=== PATIENT | male | born 1965 | race African-American/Black ===

== ENCOUNTER 2017-08-31 11:38 | Emergency (ER) | payer MEDICAID, SELFPAY ==
[2017-08-31 11:41] VITALS: BP 139/72; PULSE 86; RESP 18; TEMP 36.6; O2SAT 100; BMI 28.7
--- NOTE | 2017-08-31 11:56 | HMH.EDGENADL ---
ED Disposition Clinical Impression: Noncompliance Disposition: Home, Self-Care Condition on Discharge: Good Additional Instructions: I informed the the patient that his chronic renal failure is getting worse and he needs his dialysis. The patient will be discharged to the personal residential. The case was discussed with Dr. Rowe and Dr. Kendrikc. Referrals: Augustus Kendrick MD [Primary Care Provider] - - Critical Care Critical Care Time: No Attestation: On , the high probability of a clinically significant, sudden or life threatening deterioration of the following system(s) required my full and direct attention, intervention and personal management. The time I documented below is in addition to time spent performing reported procedures but includes the following listed in this critical care notation. Vital system(s) involved:: Metabolic Failure Medical Decision Making Vital Signs: 08/31/17 11:41 Temperature 98 F Temperature Source Oral Pulse Rate [Right Radial] 86 Respiratory Rate 18 Blood Pressure [Right Arm] 139/72 Blood Pressure Mean [Right Arm] 94 Blood Pressure Source [Right Arm] Automatic Cuff Blood Pressure Position [Right Arm] Supine 02 Sat by Pulse Oximetry 100 Oxygen Delivery Method Room Air - Lab Data Lab Results 08/31/17 12:05: WBC 8.9, RBC 3.55 L, Hgb 10.5 L, Hct 33.7 L, MCV 95.0 H, MCH 29.6, MCHC 31.1 L, RDW 13.7, Plt Count 222, MPV 9.2, Neut % (Auto) 74.7, Lymph % (Auto) 13.8, Major % (Auto) 8.4, Eos % (Auto) 2.5, Baso % (Auto) 0.6, Neut # (Auto) 6.7, Lymph # (Auto) 1.2, Major # (Auto) 0.8, Eos # (Auto) 0.2, Baso # (Auto) 0.1 08/31/17 12:05: Sodium 142, Potassium 4.3, Chloride 102, Carbon Dioxide 30, Anion Gap 14.3, BUN 99 H, Creatinine 17.40 H, Estimated Creat Clear 6, Estimated GFR 3 L*, Est GFR ( Amer) 4 L*, Glucose 140 H, Calcium 9.7, Total Bilirubin 0.5, AST 7 L, ALT 13, Alkaline Phosphatase 118 H, Troponin I < 0.02, Total Protein 7.7, Albumin 3.4, Globulin 4.3 H, Albumin/Globulin Ratio 0.8 L 08/31/17 12:05: Magnesium 2.5 H 08/31/17 12:25: Influenza Type A Ag Negative, Influenza Type B Ag Negative, Group A Strep Rapid Negative Result diagrams: 08/31/17 12:05 08/31/17 12:05 Orders (Tests/Meds): ORDERS Category Date Time Status Chest XR -- portable [XR chest portable] Stat Exams 08/31/17 13:31 Taken Urinalysis and Microscopic Stat Lab 08/31/17 11:56 Ordered Strep Screen Confirmation Stat Micro 08/31/17 12:25 Received - ECG Data Tracing #1 I reviewed this ECG and interpreted as documented below: ECG initial impression date: 08/31/17 (Normal sinus rhythm 86/min baseline artifact no acute finding) - Antony Inquiry Pt receiving controlled substance: No Antony was queried for this patient: No Medical Decision Making Narrative: I did discuss the elevated BUN/creatinine with Dr. Rowe his car construction superintendent at [facility]. He advised that the patient is not a volume overload he can go but he will need his next dialysis appointment on September 02. Call Dr. Kendrick who agreed with the plan to send him back and follow-up on his dialysis as scheduled. The patient was clearly instructed that he needs his dialysis not to miss any more, I am not really sure if he will follow my advice. He is alert oriented ?[address] dates and person. General Adult HPI - General Chief complaint: Weakness Stated complaint: WEAKNESS Mode of Arrival: EMS Source of Information: Patient, EMS (Nursing staff and staff.) Limitations: No Limitations Description of Symptoms (Recalled from ER Triage Doc. by RN): PT SENT TO ER PER FOR AN EVALUATION. PT HAS MISSED LAST 3 DIALYSIS APPOINTMENTS. - History of Present Illness HPI narrative: This is a 52 years old -[place] male with chronic renal failure on dialysis, diffuses dialysis for the last for the past 2 times and was willing to go today but he missed his ride. He is a resident at [facility]
--- NOTE | 2017-08-31 12:04 | ED_ITS ---
ED Disposition Clinical Impression: Noncompliance Disposition: Home, Self-Care Condition on Discharge: Good Additional Instructions: I informed the the patient that his chronic renal failure is getting worse and he needs his dialysis. The patient will be discharged to the personal group home. The case was discussed with Dr. Rowe and Dr. Kendrick. Referrals: Augustus Kendrick MD [Primary Care Provider] - - Critical Care Critical Care Time: No Attestation: On , the high probability of a clinically significant, sudden or life threatening deterioration of the following system(s) required my full and direct attention, intervention and personal management. The time I documented below is in addition to time spent performing reported procedures but includes the following listed in this critical care notation. Vital system(s) involved:: Metabolic Failure Medical Decision Making Vital Signs: 08/31/17 11:41 Temperature 98 F Temperature Source Oral Pulse Rate [Right Radial] 86 Respiratory Rate 18 Blood Pressure [Right Arm] 139/72 Blood Pressure Mean [Right Arm] 94 Blood Pressure Source [Right Arm] Automatic Cuff Blood Pressure Position [Right Arm] Supine 02 Sat by Pulse Oximetry 100 Oxygen Delivery Method Room Air - Lab Data Lab Results 08/31/17 12:05: WBC 8.9, RBC 3.55 L, Hgb 10.5 L, Hct 33.7 L, MCV 95.0 H, MCH 29.6, MCHC 31.1 L, RDW 13.7, Plt Count 222, MPV 9.2, Neut % (Auto) 74.7, Lymph % (Auto) 13.8, [place] % (Auto) 8.4, Eos % (Auto) 2.5, Baso % (Auto) 0.6, Neut # ( Auto) 6.7, Lymph # (Auto) 1.2, [place] # (Auto) 0.8, Eos # (Auto) 0.2, Baso # (Auto ) 0.1 08/31/17 12:05: Sodium 142, Potassium 4.3, Chloride 102, Carbon Dioxide 30, Anion Gap 14.3, BUN 99 H, Creatinine 17.40 H, Estimated Creat Clear 6, Estimated GFR 3 L*, Est GFR ( Amer) 4 L*, Glucose 140 H, Calcium 9.7, Total Bilirubin 0.5, AST 7 L, ALT 13, Alkaline Phosphatase 118 H, Troponin I < 0.02, Total Protein 7.7, Albumin 3.4, Globulin 4.3 H, Albumin/Globulin Ratio 0.8 L 08/31/17 12:05: Magnesium 2.5 H 08/31/17 12:25: Influenza Type A Ag Negative, Influenza Type B Ag Negative, Group A Strep Rapid Negative Result diagrams: 08/31/17 12:05 08/31/17 12:05 Orders (Tests/Meds): ORDERS Category Date Time Status Chest XR -- portable [XR chest portable] Stat Exams 08/31/17 13:31 Taken Urinalysis and Microscopic Stat Lab 08/31/17 11:56 Ordered Strep Screen Confirmation Stat Micro 08/31/17 12:25 Received - ECG Data Tracing #1 I reviewed this ECG and interpreted as documented below: ECG initial impression date: 08/31/17 (Normal sinus rhythm 86/min baseline artifact no acute finding) - Antony Inquiry Pt receiving controlled substance: No Antony was queried for this patient: No Medical Decision Making Narrative: I did discuss the elevated BUN/creatinine with Dr. Rowe his site manager at [facility]. He advised that the patient is not a volume overload he can go but he will need his next dialysis appointment on September 02. Call Dr. Kendrick who agreed with the plan to send him back and follow-up on his dialysis as scheduled. The patient was clearly instructed that he needs his dialysis not to miss any more, I am not really sure if he will follow my advice. He is alert oriented ?[address] dates and person. General Adult HPI - General Chief complaint: Weakne
[2017-08-31 12:24] LABS: Basophils # 0.1 K/mm3 (0-0.2); Basophils % 0.6 % (0.1-2.0); Eosinophils # 0.2 K/mm3 (0.0-0.4); Eosinophils % 2.5 % (0.1-12.0); Hematocrit 33.7 % (42.0-52.0); Hemoglobin 10.5 g/dL (14.1-18.0); Lymphocytes # 1.2 K/mm3 (0.7-4.5); Lymphocytes % 13.8 K/mm3 (10-50); Mean Corpuscular HGB Conc 31.1 g/dL (31.8-35.4); Mean Corpuscular Hemoglobin 29.6 pg (27.0-31.2); Mean Platelet Volume 9.2 fl (7.4-10.4); Monocytes # 0.8 K/mm3 (0.1-1.0); Monocytes % 8.4 % (1.7-9.3); Neutrophils # 6.7 K/mm3 (1.8-7.8); Neutrophils % 74.7 % (37.0-80.0); Platelet Count 222 K/mm3 (142-424); Red Blood Count 3.55 M/mm3 (4.60-6.20); Red Cell Distribution Width 13.7 % (11.5-17.5); White Blood Count 8.9 K/mm3 (4.8-10.8)
[2017-08-31 12:37] LABS: Alanine Aminotransferase 13 U/L (12-78); Albumin Level 3.4 gm/dL (3.4-5.0); Albumin/Globulin Ratio 0.8 (1.1-1.8); Alkaline Phosphatase 118 U/L (46-116); Anion Gap 14.3 mEq/L (5-15); Aspartate Amino Transferase 7 U/L (15-37); Bilirubin,Total 0.5 mg/dL (0.2-1.0); Calcium 9.7 mg/dL (8.5-10.1); Carbon Dioxide 30 mmol/L (21.0-32.0); Chloride 102 mmol/L (98-107); Creatinine Clearance Estimated 6 mL/min (0-300); Estimated Glomerular Filt Rate 3 ml/min (>60); GFR (African American) 4 ML/MIN (>60); Globulin 4.3 gm/dl (1.3-3.2); Glucose 140 mg/dL (74-106); Potassium 4.3 mmoL/L (3.5-5.1); Sodium 142 mmol/L (136-145); Total Protein,Serum 7.7 gm/dL (6.4-8.2); Troponin I < 0.02 ng/ml (0.00-0.06)
[2017-08-31 12:38] LABS: Blood Urea Nitrogen 99 mg/dL (7-18)
[2017-08-31 12:41] LABS: Strep Scrn Group A (Rapid) Negative (Negative)
[2017-08-31 13:06] LABS: Magnesium 2.5 mg/dL (1.4-2.2)
--- NOTE | 2017-08-31 13:31 | XR_ITS ---
XR chest portable HISTORY: ITS.REASON: weakness ORDERING PHYSICIAN: Henrietta Mccarthy MD PATIENT AGE: 52 years COMPARISON: None available FINDINGS: The cardiomediastinal silhouette and pulmonary vascularity are within normal limits. The lungs are clear without infiltrates, suspicious nodules, or pleural effusions. Calcified granuloma left lower lung zone No acute bony abnormalities. There is mild thoracic scoliosis convex right IMPRESSION: Negative chest, no acute finding
--- NOTE | 2017-08-31 14:22 | PC.NURSE ---
SPEAKING WITH CHIROPRACTIC ASSISTANT
[2017-08-31 14:38] VITALS: BP 146/95; PULSE 85; RESP 18; O2SAT 100
== END 2017-08-31 14:45 | disposition home or self-care (01) ==
PROVIDERS: Emergency Provider Emergency Medicine; PCP Emergency Medicine
DX: E10.22 Type 1 diabetes mellitus with diabetic chronic kidney disease (principal); N18.6 End stage renal disease; Z99.2 Dependence on renal dialysis; Z91.15 Patient's noncompliance with renal dialysis; Z79.899 Other long term (current) drug therapy
CPT/HCPCS: 71045; 80053; 83735; 84484; 85025; 87275; 87276; 87430; 93005; 93041; 99284